=== PATIENT | female | born 2000 | race American Indian/Alaskan Native ===

== ENCOUNTER 2020-01-31 23:01 | Emergency (ER) | payer OTHER ==
[2020-02-01 00:45] VITALS: BP 105/46
[2020-02-01 01:44] LABS: Bilirubin,Urine NEG (Negative); Blood,Urine LG (Negative); Color,Urine Red (Yellow); Mucus,Urine 3+ /HPF; Urobilinogen,Urine < 2.0 mg/dL (<2.0)
[2020-02-01 01:46] LABS: RBC,Urine > 182.0 /HPF (0.0-6.0); WBC,Urine > 182.0 /HPF (0.0-6.0)
--- NOTE | 2020-02-01 01:47 | Ultrasound Report ---
CLINICAL DATA: vaginal bleeding TECHNICAL DATA: Ultrasound, pelvic (nonobstetric), real-time with image documentation; transabdominal and transvagina l imaging with Doppler was performed. FINDINGS: The uterus is of normal size and echogenicity. There are no uterine masses. Endometrial thickness is within normal limits. The right and left ovaries are of symmetric size and echogenicity. There are no ovarian or adnexal ma sses. Doppler imaging demonstrates normal vascular flow to both ovaries. There is no significant quantity of free fluid dependently within the pelvis. IMPRESSION: Unremarkable routine ultrasound. No evidence of an intrauterine GUIDELINES FOR IMAGING OF OVARIAN--ADNEXAL CYST: WOMEN OF REPRODUCTIVE AGE: 1. Cysts <=3 cm: Normal physiologic findings; at the discretion of the interpreting physician whether or not to describe them in the imaging report; do not need follow-up. 2. Cysts >3 and <=5 cm: Should be described in the imaging report with a statement that they are almo st certainly benign; do not need follow-up. 3. Cysts >5 and <=7 cm: Should be described in the imaging report with a statement that they are almo st certainly benign; yearly follow-up with US recommended. 4. Cysts >7 cm: Since these may be difficult to assess completely with US, further imaging with magne tic resonance (MR) or surgical evaluation should be considered. POSTMENOPAUSAL WOMEN: 1. Cysts <=1 cm: Are clinically inconsequential; at the discretion of the interpreting physician whet her or not to describe them in the imaging report; do not need follow-up. 2. Cysts >1 and <=7 cm: Should be described in the imaging report with statement that they are almost certainly benign; yearly follow-up, at least initially, with US recommended. Some practices may opt to increase the lower size threshold for follow-up from 1 cm to as high as 3 cm. One may opt to juan manuel nue follow-up annually or to decrease the frequency of follow-up once stability or decrease in size h as been confirmed. Cysts in the larger end of this range should still generally be followed on a regu lar basis. 3. Cysts >7 cm: Since these may be difficult to assess completely with US, further imaging with MR or surgical evaluation should be considered. Signer Name: Yonas Mclaughlin MD Signed: 02/01/2020 1:43 AM Workstation Name: [id number]
[2020-02-01 02:04] LABS: Basophils # (Auto) 0.1 K/mm3 (0.0-0.1); Basophils % (Auto) 0.6 % (0.0-1.8); Eosinophils # (Auto) 0.1 K/mm3 (0.0-0.4); Eosinophils % (Auto) 0.5 % (0.0-4.3); Hematocrit 36.3 % (30.3-42.9); Hemoglobin 11.8 gm/dl (10.1-14.3); Lymphocytes # (Auto) 2.4 K/mm3 (1.2-5.4); Lymphocytes % (Auto) 26.1 % (13.4-35.0); Mean Corpuscular HGB Conc 32 % (30-34); Mean Corpuscular Volume 82 fl (79-97); Monocytes # (Auto) 0.6 K/mm3 (0.0-0.8); Monocytes % (Auto) 6.9 % (0.0-7.3); Platelet Count 315 K/mm3 (140-440); Red Blood Count 4.41 M/mm3 (3.65-5.03); Red Cell Distribution Width 14.8 % (13.2-15.2)
[2020-02-01] MEDS ORDERED: LIDOCAINE-MPF (1%) 10 MG/1 ML VIAL 5 ML INFILTRATI ONE (03:16)
[2020-02-01] MEDS ORDERED: IBUPROFEN 600 MG TAB PO ONE (03:16)
[2020-02-01] MEDS ORDERED: diphenhydrAMINE 25 MG CAP PO ONE (03:16)
--- NOTE | 2020-02-01 04:13 | Emergency Department Report ---
ED Female HPI - General Chief complaint: Vaginal Bleeding Stated complaint: ABD PAIN/7WKS /BLEEDING Source: patient Mode of arrival: Ambulatory Limitations: No Limitations - History of Present Illness Initial comments: Patient is a nulliparous 19-year-old -[place] female with no past medical history except asthma and who presents to the ED with complaint of acute onset severe suprapubic pain for the last 1 week and heavy vaginal bleeding with clots for the last 2 days. Patient states that the pain and the bleeding has been persistent. Patient denies dysuria, urinary frequency and urgency, fever, chills, cough, diarrhea, nausea and vomiting, low back pain, chest pain, shortness of breath, headache or lightheadedness and dizziness. MD Complaint: vaginal bleeding, pelvic pain -: Sudden, week(s) (1) Location: suprapubic Radiation: non-radiating Severity: severe Severity scale (0 -10): 7 Quality: cramping, sharp Consistency: intermittent Improves with: none Worsens with: none Are you Now?: No Last Menstrual Period: 01/05/20 EDC: 10/11/20 Associated Symptoms: denies other symptoms, vaginal bleeding, abdominal pain, hematuria. denies: vaginal discharge, nausea/vomiting, fever/chills, headaches, loss of appetite, dysuria, rash, seizure, shortness of breath, syncope, weakness - Related Data Sexually active: Yes : 0 Para: 0 A: 0 Home Medications Medication Instructions Recorded Confirmed Last Taken Albuterol Mdi (or & Nicu Only) 05/20/19 Unknown [ProAir HFA Inhaler] Previous Rx's Medication Instructions Recorded Last Taken Type Clindamycin [Clindamycin CAP] 300 mg PO Q8H #21 cap 05/20/19 Unknown Rx Ibuprofen [Motrin 800 MG tab] 800 mg PO Q8HR PRN #14 tablet 05/20/19 Unknown Rx traMADoL [Ultram] 50 mg PO Q6HR PRN #15 tablet 05/21/19 Unknown Rx Ibuprofen [Motrin] 600 mg PO Q8H PRN #30 tablet 02/01/20 Unknown Rx Sulfamethoxazole/Trimethoprim 1 each PO Q12H #20 tablet 02/01/20 Unknown Rx [Bactrim DS TAB] Allergies Allergy/AdvReac Type Severity Reaction Status Date / Time Penicillins Allergy Itching Verified 05/20/19 21:58 acetaminophen [From Tylenol] AdvReac Vomiting Verified 05/20/19 21:58 ED Review of Systems ROS: Stated complaint: ABD PAIN/7WKS /BLEEDING Other details as noted in HPI Constitutional: denies: chills, fever Eyes: denies: eye pain, eye discharge, vision change ENT: denies: ear pain, throat pain Respiratory: denies: cough, shortness of breath, wheezing Cardiovascular: denies: chest pain, palpitations Endocrine: no symptoms reported Gastrointestinal: abdominal pain (Suprapubic pain). denies: nausea, diarrhea Genitourinary: abnormal menses (Vaginal bleeding with clots). denies: urgency, dysuria, discharge Musculoskeletal: denies: back pain, joint swelling, arthralgia Skin: denies: rash, lesions Neurological: denies: headache, weakness, paresthesias Psychiatric: denies: anxiety, depression Hematological/Lymphatic: denies: easy bleeding, easy bruising ED Past Medical Hx - Past Medical History Previous Medical History?: Yes Hx Asthma: Yes - Surgical History Past Surgical History?: No - Social History Smoking Status: Never Smoker Substance Use Type: None - Medications Home Medications: Home Medications Medication Instructions Recorded Confirmed Last Taken Type Albuterol Mdi (or & Nicu Only) 05/20/19 Unknown History [ProAir HFA Inhaler] Clindamycin [Clindamycin CAP] 300 mg PO Q8H #21 cap 05/20/19 Unknown Rx Ibuprofen [Motrin 800 MG tab] 800 mg PO Q8HR PRN #14 tablet 05/20/19 Unknown Rx traMADoL [Ultram] 50 mg PO Q6HR PRN #15 tablet 05/21/19 Unknown Rx Ibuprofen [Motrin] 600 mg PO Q8H PRN #30 tablet 02/01/20 Unknown Rx Sulfamethoxazole/Trimethoprim 1 each PO Q12H #20 tablet 02/01/20 Unknown Rx [Bactrim DS TAB] ED Physical Exam - General Limitations: No Limitations General appearance: alert, in no apparent distress - Head Head exam: Present: atraumatic, normocephalic, normal inspection - Eye Eye exam: Present: normal appearance, PERRL, EOMI Pupils: Present: normal accommodation - ENT ENT exam: Present: normal exam, normal orophraynx, mucous membranes moist, TM's normal bilaterally, normal external ear exam - Neck Neck exam: Present: normal inspection, full ROM - Respiratory Respiratory exam: Present: normal lung sounds bilaterally. Absent: respiratory distress, wheezes, rhonchi, stridor, chest wall tenderness, accessory muscle use, decreased breath sounds, prolonged expiratory - Cardiovascular Cardiovascular Exam: Present: regular rate, normal rhythm, normal heart sounds. Absent: systolic murmur, diastolic murmur, rubs, gallop - GI/Abdominal GI/Abdominal exam: Present: soft, tenderness (Mildly diffuse lower abdominal tenderness), normal bowel sounds. Absent: guarding, rebound, hyperactive bowel sounds, hypoactive bowel sounds, mass - Bi-manual exam: Present: other (Pelvic exam deferred) - Extremities Exam Extremities exam: Present: normal inspection, full ROM, normal capillary refill - Back Exam Back exam: Present: normal inspection, full ROM. Absent: tenderness, CVA tenderness (R), CVA tenderness (L), muscle spasm, paraspinal tenderness, vertebral tenderness - Neurological Exam Neurological exam: Present: alert, oriented X3, CN II-XII intact, normal gait, reflexes normal - Psychiatric Psychiatric exam: Present: normal affect, normal mood - Skin Skin exam: Present: warm, dry, intact, normal color. Absent: rash ED Course Vital Signs 02/01/20 00:40 Temperature 98.2 F Pulse Rate 70 Respiratory 16 Rate Blood Pressure 105/46 O2 Sat by Pulse 100 Oximetry ED Medical Decision Making - Lab Data Result diagrams: 02/01/20 01:24 - Radiology Data Radiology results: report reviewed, image reviewed Findings [address] [address] Ultrasound Report Signed Patient: NICKIE WOODRUFF MR#: [id number] [birth year] : 2000 Acct:[id number] Age/Sex: 19 / F ADM Date: 01/31/20 Loc: ED Attending Dr: Ordering Physician: ROSETTA AMAYA MD Date of Service: 02/01/20 Procedure(s): US OB <= 14 wk fetus add gest Accession Number(s): [id number] cc: ED MD MONIQUE CLINICAL DATA: vaginal bleeding TECHNICAL DATA: Ultrasound, pelvic (nonobstetric), real-time with image documentation; transabdominal and transvaginal imaging with Doppler was performed. FINDINGS: The uterus is of normal size and echogenicity. There are no uterine masses. E ndometrial thickness is within normal limits. The right and left ovaries are of symmetric size and echogenicity. There are no ovarian or adnexal masses. Doppler imaging demonstrates normal vascular flow to both ovaries. There is no significant quantity of free fluid dependently within the pelvis. IMPRESSION: Unremarkable routine ultrasound. No evidence of an intrauterine GUIDELINES FOR IMAGING OF OVARIAN--ADNEXAL CYST: WOMEN OF REPRODUCTIVE AGE: 1. Cysts <=3 cm: Normal physiologic findings; at the discretion of the interpreting physician whether or not to describe them in the imaging report; do not need follow-up. 2. Cysts >3 and <=5 cm: Should be described in the imaging report with a statement that they are almost certainly benign; do not need follow-up. 3. Cysts >5 and <=7 cm: Should be described in the imaging report with a statement that they are almost certainly benign; yearly follow-up with US recommended. 4. Cysts >7 cm: Since these may be difficult to assess completely with US, further imaging with magnetic resonance (MR) or surgical evaluation should be considered. POSTMENOPAUSAL WOMEN: 1. Cysts <=1 cm: Are clinically inconsequential; at the discretion of the interpreting physician whether or not to describe them in the imaging report; do not need follow-up. 2. Cysts >1 and <=7 cm: Should be described in the imaging report with statement that they are almost certainly benign; yearly follow-up, at least initially, with US recommended. Some practices may opt to increase the lower size threshold for follow-up from 1 cm to as high as 3 cm. One may opt to continue follow-up annually or to decrease the frequency of follow-up once stability or decrease in size has been confirmed. Cysts in the larger end of this range should still generally be followed on a regular basis. 3. Cysts >7 cm: Since these may be difficult to assess completely with US, further imaging with MR or surgical evaluation should be considered. Signer Name: Yonas Mclaughlin MD Signed: 02/01/2020 1:43 AM Workstation Name: [id number] Transcribed By: CHRISTOPHER Dictated By: Yonas Mclaughlin MD Electronically Authenticated By: Yonas Mclaughlin MD Signed Date/Time: 02/01/20142 DD/ 1 TD/TT: - Medical Decision Making This is a nulliparous 19-year-old -[place] female with no past medical history except asthma and who presents to the ED with complaint of acute onset severe suprapubic pain for the last 1 week and heavy vaginal bleeding with clots for the last 2 days. Patient states that the pain and the bleeding has been persistent. In the ED, patient is alert and oriented x3 and is not in distress. Patient was treated for pain in the ED. Lab test results were reviewed and are all nonactionable including negative hCG quant but urinalysis showed significant urinary tract infection characterized by positive nitrites, moderate leukocyte esterase levels and >182 WBCs. Patient also received Rocephin 1 g intramuscular injection in the ED for UTI. Transvaginal ultrasound was unremarkable and showed no evidence of an intrauterine . On reevaluation, patient's pain is well controlled medications. Patient was discharged home on pain medications and oral antibiotics and was advised to follow-up with her [employer] physician or primary care physician in 7 to 10 days for reevaluation or return to the ED immediately if symptoms get worse. - Differential Diagnosis Ectopic ; threatened miscarriage; UTI; dysmenorrhea; ovarian cyst Critical care attestation.: If time is entered above; I have spent that time in minutes in the direct care of this critically ill patient, excluding procedure time. ED Disposition Clinical Impression: Dysmenorrhea, Acute urinary tract infection Abdominal pain Qualifiers: Abdominal location: lower abdomen, unspecified Qualified Code(s): R10.30 - Lower abdominal pain, unspecified Disposition: DC-01 TO HOME OR SELFCARE Is pt being admited?: No Does the pt Need Aspirin: No Condition: Stable Instructions: Acute Abdominal Pain (ED), Dysmenorrhea (ED), Urinary Tract Infection in Women (ED) Additional Instructions: All lab test results are unremarkable except for urinalysis that showed significant urinary tract infection. Pelvic ultrasound is unremarkable with no evidence of intrauterine . Therefore take medications with food, drink plenty of fluids and follow-up with your primary care physician in 7 to 10 days for reevaluation. Return to the ED immediately if symptoms get worse. Prescriptions: Sulfamethoxazole/Trimethoprim [Bactrim DS TAB] 1 each PO Q12H #20 tablet Ibuprofen [Motrin] 600 mg PO Q8H PRN #30 tablet PRN Reason: Pain Referrals: [facility] [Provider Group] - 7-10 days Forms: Work/School Release Form(ED) Time of Disposition: 04:14 Print Language: EMIRATI
== END 2020-02-01 05:05 | disposition home or self-care (01) ==
LOC: ED 23:01
DX: N39.0 Urinary tract infection, site not specified (principal); N94.6 Dysmenorrhea, unspecified; J45.909 Unspecified asthma, uncomplicated; Z79.899 Other long term (current) drug therapy; Z88.0 Allergy status to penicillin; Z88.6 Allergy status to analgesic agent
CPT/HCPCS: 36415; 76801; 81001; 84702; 85025; 86900; 86901; 96372; 99284; J0696; 76802

== ENCOUNTER 2021-03-31 15:09 | Emergency (ER) | payer OTHER ==
[2021-03-31 16:19] VITALS: BP 115/67
[2021-03-31] MEDS ORDERED: METOCLOPRAMIDE 10 MG TAB PO ONE (16:46)
--- NOTE | 2021-03-31 16:47 | Emergency Department Report ---
ED General Adult HPI - General Chief complaint: Dizziness Stated complaint: NAUSEA/SYNCOPE PUI?: No Time Seen by Provider: 03/31/21 16:33 Source: patient, RN notes reviewed, old records reviewed Mode of arrival: Ambulatory Limitations: No Limitations - History of Present Illness Initial comments: The patient is a 20-year-old female. She is not known to myself previously. She does not know she is . She presents to the ER with a complaint of nausea, and syncope over the weekend. The patient states that she was in her usual state of health over the weekend, when she went out to dinner with friends. Prior to going out with friends, she was not have any complaints or issues. She states that she had her typical alcoholic beverage, but no recreational drugs, and did not eat much of anything. She reports that while she was at dinner, she began to have some nausea. She reports that her friends who are accompanying her were not having any symptoms. She reports that she went to the bathroom, got on her knees, and began to retch. After retching, she felt lightheaded, stood up, and believes that she hit her h ead on the mirror. She thinks that she passed out but she is not sure. Prior to the event, the patient denies headache, neck pain, chest pain, abdominal pain, shortness of breath. She denies the possibility of . She denies travel, surgery, immobilization, DVT/PE risk factors. She denies significant personal family history that she is aware of. The patient states that she has been "fine" since the event. She does have a mild occipital headache, which is not sudden or thunderclap in nature. It is not maximal in intensity. It is not the worst headache of her life. Patient denies recreational drug use. The patient presents to the ER "just to make sure everything is okay." -: Sudden, days(s) Consistency: now resolved Improves with: none Worsens with: other (Nausea and vomit) - Related Data Home Medications Medication Instructions Recorded Confirmed Last Taken Albuterol Mdi (or & Nicu Only) 05/20/19 Unknown [ProAir HFA Inhaler] Previous Rx's Medication Instructions Recorded Last Taken Type Sulfamethoxazole/Trimethoprim 1 each PO Q12H #20 tablet 02/01/20 Unknown Rx [Bactrim DS TAB] Metoclopramide [Reglan] 10 mg PO QID PRN #30 tablet 03/31/21 Unknown Rx Allergies Allergy/AdvReac Type Severity Reaction Status Date / Time Penicillins Allergy Itching Verified 05/20/19 21:58 acetaminophen [From Tylenol] AdvReac Vomiting Verified 05/20/19 21:58 ED Review of Systems ROS: Stated complaint: NAUSEA/SYNCOPE Other details as noted in HPI Constitutional: denies: fever Eyes: denies: eye discharge ENT: denies: epistaxis Respiratory: denies: cough Cardiovascular: syncope. denies: chest pain Gastrointestinal: nausea, vomiting. denies: abdominal pain Neurological: headache. denies: weakness Hematological/Lymphatic: denies: easy bleeding ED Past Medical Hx - Past Medical History Hx Asthma: Yes - Social History Smoking Status: Never Smoker Substance Use Type: None - Medications Home Medications: Home Medications Medication Instructions Recorded Confirmed Last Taken Type Albuterol Mdi (or & Nicu Only) 05/20/19 Unknown History [ProAir HFA Inhaler] Sulfamethoxazole/Trimethoprim 1 each PO Q12H #20 tablet 02/01/20 Unknown Rx [Bactrim DS TAB] Metoclopramide [Reglan] 10 mg PO QID PRN #30 tablet 03/31/21 Unknown Rx ED Physical Exam - General Limitations: No Limitations General appearance: alert, in no apparent distress - Head Head exam: Present: atraumatic, normocephalic - Eye Eye exam: Present: normal appearance, PERRL, EOMI, other (Visual acuity intact to finger counting, color perception, reading at a close distance). Absent: nystagmus - ENT ENT exam: Present: normal exam, normal orophraynx, mucous membranes moist, normal external ear exam - Neck Neck exam: Present: normal inspection, full ROM. Absent: tenderness, meningismus - Respiratory Respiratory exam: Present: normal lung sounds bilaterally. Absent: respiratory distress, wheezes, rales, rhonchi, stridor, decreased breath sounds - Cardiovascular Cardiovascular Exam: Present: regular rate, normal rhythm, normal heart sounds. Absent: bradycardia, tachycardia, irregular rhythm, systolic murmur, diastolic murmur, rubs, gallop - GI/Abdominal GI/Abdominal exam: Present: soft. Absent: distended, tenderness, guarding, rebound, rigid, pulsatile mass - Extremities Exam Extremities exam: Present: normal inspection, full ROM, other (2+ pulses noted in the bilateral upper and lower extremities. There is no palpable cord. negative Homans sign. Muscular compartments are soft. The pelvis is stable.). Absent: pedal edema, calf tenderness - Back Exam Back exam: Present: normal inspection, full ROM. Absent: tenderness, CVA tenderness (R), CVA tenderness (L), paraspinal tenderness, vertebral tenderness - Neurological Exam Neurological exam: Present: alert, oriented X3, normal gait, other (There is no facial droop. The tongue is midline. Extraocular movements are intact bilaterally. There is 5 out of 5 strength in bilateral upper and lower extremities. Sensation is intact to light touch bilateral upper and lower extremities. There is no past-pointing. There is no pronator drift.). Absent: motor sensory deficit - Psychiatric Psychiatric exam: Present: normal affect, normal mood - Skin Skin exam: Present: warm, dry, intact, normal color. Absent: rash ED Course Vital Signs 03/31/21 03/31/21 16:14 18:13 Temperature 98.3 F Pulse Rate 84 Respiratory 18 16 Rate Blood Pressure 115/67 O2 Sat by Pulse 100 Oximetry - Reevaluation(s) Reevaluation #1: 03/31/21 17:53 Differential diagnosis, including but not limited to: Orthostasis, vagal event, dehydration, electrolyte derangement, hypoglycemia, concussion, Assessment and plan: 20-year-old female, who is afebrile, with reassuring vital signs, clinically sober, with a GCS of 15, who is not currently tachycardic, tachypneic or hypoxic, who denies DVT and pulmonary embolism risk factors, who is low risk by Wells criteria for pulmonary embolism, PERC negative, with an unr emarkable physical examination. Patient also low risk by the Junior head CT rule. EKG unremarkable. Laboratory studies pending. We will treat her supportively and symptomatically. Reassess. Patient counseled to not drive or operate motor vehicles for the next 6 months. 03/31/21 18:46 Patient on cell phone. Laboratory studies unremarkable. Patient in no acute distress. Suitable to follow-up as an outpatient. Return precautions reviewed. Repeat examination unchanged. ED Medical Decision Making - Lab Data Result diagrams: 03/31/21 17:13 03/31/21 17:13 Vital Signs 03/31/21 16:14 Temperature 98.3 F Pulse Rate 84 Respiratory 18 Rate Blood Pressure 115/67 O2 Sat by Pulse 100 Oximetry Lab Results 03/31/21 03/31/21 Range/Units 17:13 17:13 WBC 4.7 (4.5-11.0) K/mm3 RBC 4.25 (3.65-5.03) M/mm3 Hgb 10.4 (10.1-14.3) gm/dl Hct 32.3 (30.3-42.9) % MCV 76 L (79-97) fl MCH 24 L (28-32) pg MCHC 32 (30-34) % RDW 17.1 H (13.2-15.2) % Plt Count 370 (140-440) K/mm3 Lymph % (Auto) 35.2 H (13.4-35.0) % [place] % (Auto) 8.3 H (0.0-7.3) % Eos % (Auto) 4.1 (0.0-4.3) % Baso % (Auto) 1.3 (0.0-1.8) % Lymph # (Auto) 1.7 (1.2-5.4) K/mm3 [place] # (Auto) 0.4 (0.0-0.8) K/mm3 Eos # (Auto) 0.2 (0.0-0.4) K/mm3 Baso # (Auto) 0.1 (0.0-0.1) K/mm3 Seg Neutrophils % 51.1 (40.0-70.0) % Seg Neutrophils # 2.4 (1.8-7.7) K/mm3 PT 14.7 (12.2-14.9) Sec. INR 1.04 (0.87-1.13) Lab Results 03/31/21 03/31/21 03/31/21 Range/Units 17:13 17:13 17:13 WBC 4.7 (4.5-11.0) K/mm3 RBC 4.25 (3.65-5.03) M/mm3 Hgb 10.4 (10.1-14.3) gm/dl Hct 32.3 (30.3-42.9) % MCV 76 L (79-97) fl MCH 24 L (28-32) pg MCHC 32 (30-34) % RDW 17.1 H (13.2-15.2) % Plt Count 370 (140-440) K/mm3 Lymph % (Auto) 35.2 H (13.4-35.0) % [place] % (Auto) 8.3 H (0.0-7.3) % Eos % (Auto) 4.1 (0.0-4.3) % Baso % (Auto) 1.3 (0.0-1.8) % Lymph # (Auto) 1.7 (1.2-5.4) K/mm3 [place] # (Auto) 0.4 (0.0-0.8) K/mm3 Eos # (Auto) 0.2 (0.0-0.4) K/mm3 Baso # (Auto) 0.1 (0.0-0.1) K/mm3 Seg Neutrophils % 51.1 (40.0-70.0) % Seg Neutrophils # 2.4 (1.8-7.7) K/mm3 PT 14.7 (12.2-14.9) Sec. INR 1.04 (0.87-1.13) Sodium 138 (137-145) mmol/L Potassium 4.5 (3.6-5.0) mmol/L Chloride 104.1 (98-107) mmol/L Carbon Dioxide 22 (22-30) mmol/L Anion Gap 16 mmol/L BUN 13 (7-17) mg/dL Creatinine 0.7 (0.6-1.2) mg/dL Estimated GFR > 60 ml/min BUN/Creatinine Ratio 19 % Glucose 93 (65-100) mg/dL Calcium 9.2 (8.4-10.2) mg/dL Magnesium 2.10 (1.7-2.3) mg/dL Total Bilirubin 0.20 (0.1-1.2) mg/dL AST 15 (5-40) units/L ALT 16 (7-56) units/L Alkaline Phosphatase 81 (35-129) units/L Total Protein 8.4 H (6.3-8.2) g/dL Albumin 4.6 (3.9-5) g/dL Albumin/Globulin Ratio 1.2 % TSH (0.270-4.200) mlU/mL HCG, Quant (0-4) mIU/mL 03/31/21 03/31/21 Range/Units 17:13 17:13 WBC (4.5-11.0) K/mm3 RBC (3.65-5.03) M/mm3 Hgb (10.1-14.3) gm/dl Hct (30.3-42.9) % MCV (79-97) fl MCH (28-32) pg MCHC (30-34) % RDW (13.2-15.2) % Plt Count (140-440) K/mm3 Lymph % (Auto) (13.4-35.0) % [place] % (Auto) (0.0-7.3) % Eos % (Auto) (0.0-4.3) % Baso % (Auto) (0.0-1.8) % Lymph # (Auto) (1.2-5.4) K/mm3 [place] # (Auto) (0.0-0.8) K/mm3 Eos # (Auto) (0.0-0.4) K/mm3 Baso # (Auto) (0.0-0.1) K/mm3 Seg Neutrophils % (40.0-70.0) % Seg Neutrophils # (1.8-7.7) K/mm3 PT (12.2-14.9) Sec. INR (0.87-1.13) Sodium (137-145) mmol/L Potassium (3.6-5.0) mmol/L Chloride (98-107) mmol/L Carbon Dioxide (22-30) mmol/L Anion Gap mmol/L BUN (7-17) mg/dL Creatinine (0.6-1.2) mg/dL Estimated GFR ml/min BUN/Creatinine Ratio % Glucose (65-100) mg/dL Calcium (8.4-10.2) mg/dL Magnesium (1.7-2.3) mg/dL Total Bilirubin (0.1-1.2) mg/dL AST (5-40) units/L ALT (7-56) units/L Alkaline Phosphatase (35-129) units/L Total Protein (6.3-8.2) g/dL Albumin (3.9-5) g/dL Albumin/Globulin Ratio % TSH 2.130 (0.270-4.200) mlU/mL HCG, Quant < 2 (0-4) mIU/mL - EKG Data -: EKG Interpreted by Me EKG shows normal: sinus rhythm Rate: normal - EKG Data 03/31/21 17:53 The EKG is interpreted by myself at 17: 37 Sinus rhythm, rate 73 bpm. Normal axis. Normal P wave axis. High left ve ntricular voltage. Minimal motion artifact. Intervals within normal limits. This EKG is not a STEMI. VA interval 104 ms. Delta wave not appreciated. Epsilon wave not appreciated. Critical care attestation.: If time is entered above; I have spent that time in minutes in the direct care of this critically ill patient, excluding procedure time. ED Disposition Clinical Impression: History of syncope, Closed head injury Disposition: HOME / SELF CARE / HOMELESS Is pt being admited?: No Does the pt Need Aspirin: No Condition: Good Instructions: Head Injury, Adult, [id number] Additional Instructions: Please take the nausea medication as needed and directed. Patient may take [id number] ibuprofen/Motrin, 400 mg by mouth, with food, as needed for physical pain. Patient may take the Reglan medication as needed for nausea, and/or headache. Patient may also take [id number] ibuprofen as needed for headache. Recommend that patient not drive or operate motor vehicles for the next 6 months. Recommend that patient follow-up with a primary care doctor or dray driver within the next 3 to 5 days for repeat checkup and/or evaluation. Advance diet as tolerated, drink plenty of fluids. Avoid consumption of alcohol, tobacco, heavy and spicy foods. Please return to the emergency room right away with new pain, worsened pain, migration of pain, projectile vomiting, change in mental status, confusion, inability tolerate liquid feeds, new, worsened or different symptoms not present on the initial emergency room evaluation. Patient had laboratory studies in the emergency room today which were unremarkable for emergent findings. Her EKG was not consistent with any emergent condition. Laboratory studies demonstrated normal blood counts, normal thyroid function, normal electrolytes, and the patient is found to not be while here in the emergency room today Also recommend the patient avoid contact sports and athletics. Patient may part icipate in noncontact athletics and sports. Referrals: [facility] [Provider Group] - 3-5 Days [facility] [Provider Group] - 3-5 Days Forms: Work/School Release Form(ED)
[2021-03-31 17:34] LABS: Basophils # (Auto) 0.1 K/mm3 (0.0-0.1); Basophils % (Auto) 1.3 % (0.0-1.8); Eosinophils # (Auto) 0.2 K/mm3 (0.0-0.4); Eosinophils % (Auto) 4.1 % (0.0-4.3); Hematocrit 32.3 % (30.3-42.9); Hemoglobin 10.4 gm/dl (10.1-14.3); Lymphocytes # (Auto) 1.7 K/mm3 (1.2-5.4); Lymphocytes % (Auto) 35.2 % (13.4-35.0); Mean Corpuscular HGB Conc 32 % (30-34); Mean Corpuscular Volume 76 fl (79-97); Monocytes # (Auto) 0.4 K/mm3 (0.0-0.8); Monocytes % (Auto) 8.3 % (0.0-7.3); Platelet Count 370 K/mm3 (140-440); Red Blood Count 4.25 M/mm3 (3.65-5.03); Red Cell Distribution Width 17.1 % (13.2-15.2)
[2021-03-31 17:41] LABS: INR 1.04 (0.87-1.13)
[2021-03-31 17:54] LABS: Alanine Aminotransferase 16 units/L (7-56); Albumin 4.6 g/dL (3.9-5); Blood Urea Nitrogen 13 mg/dL (7-17); Calcium 9.2 mg/dL (8.4-10.2); Hemolysis Index 1
[2021-03-31 17:56] LABS: BUN/Creatinine Ratio 19
[2021-03-31] MEDS ORDERED: IBUPROFEN 400 MG TAB PO ONE (18:04)
--- NOTE | 2021-04-01 13:27 | Electrocardiograph Report ---
[facility] Test Date: 2021-03-31 Test Time: 17:37:44 Pat Name: NICKIE WOODRUFF Department: Room: Gender: F Spearer: wanda : 2000 Requested By: ANAIS RUTH Order Number: [id number] Reading MD: Lucio Tom Measurements Intervals [place] Rate: 73 P: 37 DE: 104 QRS: 50 QRSD: 90 T: 33 QT: 372 QTc: 410 Interpretive Statements Sinus rhythm No previous ECG available for comparison Electronically Signed On 04-01-2021 13:27:24 EST by Lucio Tom
== END 2021-03-31 18:54 | disposition home or self-care (01) ==
LOC: ED 15:09
DX: S09.90XA Unspecified injury of head, initial encounter (principal); R55 Syncope and collapse; X58.XXXA Exposure to other specified factors, initial encounter; Y93.89 Activity, other specified; Y92.89 Other specified places as the place of occurrence of the external cause; Y99.8 Other external cause status
CPT/HCPCS: 36415; 80053; 83735; 84443; 84702; 85025; 85610; 93005; 99283